=== PATIENT | male | born 1940 | race Caucasian/White ===

== ENCOUNTER 2016-05-07 07:01 | Day surgery (SDC) | payer MEDICARE, OTHER ==
[2016-05-01 15:08] LABS: BASOPHILS 0.2 %; BASOPHILS ABSOLUTE 0.02 10/3/uL (0.0-0.16); EOSINOPHILS 0.3 %; EOSINOPHILS ABSOLUTE 0.03 10/3/uL (0.0-0.53); HEMATOCRIT 41.6 % (40.0-51.0); HEMOGLOBIN 14.2 g/dL (13.6-17.8); IMMATURE GRANULOCYTES 0.1 %; IMMATURE GRANULOCYTES ABSOLUTE 0.01 10/3/uL (0.0-0.11); LYMPHOCYTES 24.8 %; LYMPHOCYTES ABSOLUTE 2.26 10/3/uL (0.67-4.30); MEAN CORPUS HGB CONC 34.1 g/dL (32.0-36.0); MEAN CORPUSCULAR HEMOGLOB 30.4 pg (26.0-34.0); MEAN CORPUSCULAR VOLUME 89.1 fL (80-100); MONOCYTES 5.5 %; NEUTROPHILS 69.1 %; PLATELET COUNT 207 10/3/uL (150-400); RBC DISTRIBUTION WIDTH 13.1 % (12.0-16.0); RED CELL COUNT 4.67 10/6/uL (4.7-6.1); WHITE BLOOD CELLS 9.1 10/3/uL (4.5-10.5)
[2016-05-01 15:11] LABS: MANUAL DIFF NO %
[2016-05-01 15:21] LABS: A/G RATIO 1.3 (0.7-1.9); ALKALINE PHOSPHATASE 109 U/L (45-117); BUN (BLOOD UREA NITROGEN) 18 MG/DL (6-23); CHLORIDE, SERUM 107 MMOL/L (96-112); CO2 (CARBON DIOXIDE) 27 MMOL/L (24-34); CREATININE 1.14 MG/DL (0.70-1.30); GFR AFRICAN AMERICAN 73 ML/MIN (>=60); GFR NON AFRICAN AMERICAN 63 ML/MIN (>=60); GLUCOSE, SERUM 84 MG/DL (60-99); POTASSIUM, SERUM 4.6 MMOL/L (3.5-5.3); SGOT(AST) 21 U/L (5-40); SGPT(ALT) 21 U/L (5-65); SODIUM, SERUM 143 MMOL/L (135-148); TOTAL BILIRUBIN 0.6 MG/DL (0-1.2)
--- NOTE | ~2016-05-07 | OP ---
Record Of Operation [facility] [address] [place]. [address] NAME: FRAN BEARD : 44 STATUS : [facility]#: [id number] AGE: 76 ADM/REG DATE : 05/07/16 MR#: [id number] REPORT SERV DATE: 05/09/16 DICTATED BY: KIP KEBEDE DATE: 05/09/16 REPORT STATUS : Draft TRANSCRIBED BY: MODL DATE: 05/09/16 DATE OF PROCEDURE: 05/07/2016 PREOPERATIVE DIAGNOSIS: Right inguinal hernia. POSTOPERATIVE DIAGNOSIS: Right direct inguinal hernia. PROCEDURE PERFORMED: Right inguinal herniorrhaphy with mesh. SURGEON: Kip Kebede M.D. ANESTHESIA: General. ESTIMATED BLOOD LOSS: Minimal. SPECIMEN REMOVED: None. BRIEF HISTORY: Mr. Beard is a 76-year-old gentleman who presents with right inguinal protrusion which has been growing, becoming tender and symptomatic. He presents today for repair. FINDINGS AT THE TIME OF PROCEDURE: Mr. Beard is noted have a direct inguinal hernia. This was repaired using an extended piece of Ethicon Prolene Hernia System mesh. DETAILS: Following informed consent, the patient was taken to the operating room and placed supine on the OR table. After successful induction of general endotracheal anesthesia, his abdomen was prepped and draped in the usual sterile fashion. An Ioban adhesive drape was applied. A right lower quadrant oblique skin incision was made. Dissection was carried through skin, subcutaneous tissue, and Yenny's fascia using cautery. The external oblique aponeurosis was identified as was the external inguinal ring. The external oblique aponeurosis was then sharply incised and opened in direction of its fibers through the external inguinal ring. Spermatic cord was then identified and encircled with a Noé drain to protect the cord structures. The spermatic cord was carefully inspected. Cremasteric muscles were divided and there was no evidence of an indirect inguinal hernia. In the medial epigastric vessels, there was a large direct inguinal hernia. The transversalis fascia fibers overlying this were incised and the preperitoneal space was entered and developed bluntly with a Ray-Tuan sponge. The Ray-Tuan sponge was then removed, and an extended piece of Ethicon Prolene Hernia System mesh was deployed in the preperitoneal space. The anterior onlay portion of the mesh was then opened and secured medially to pubic tubercle using 2-0 Prolene suture. A slit was cut in the mesh to accommodate the spermatic cord, and the slit portion of the mesh was approximated around the spermatic cord using Prolene. The mesh was further fixated on the shelving edge of the ilioinguinal ligament and once the mesh had been properly fixated, we intentionally resected the ilioinguinal nerve to prevent nerve entrapment. The wound was then copiously irrigated. Hemostasis was found to be secure. The external oblique aponeurosis was then reapproximated using a running 2-0 PDS suture. Yenny's fascia was reapproximated using 3-0 Vicryl. 3-0 Record Of Operation [address] [place]. [address] NAME: FRAN BEARD : 44 STATUS : [facility] PAT#: [id number] AGE: 76 ADM/REG DATE : 05/07/16 MR#: [id number] REPORT SERV DATE: 05/09/16 DICTATED BY: KIP KEBEDE DATE: 05/09/16 REPORT STATUS : Draft TRANSCRIBED BY: ELOISA DATE: 05/09/16 Vicryl subdermals were applied followed by 4-0 Monocryl subcuticular suture and Dermabond. At the completion of the case, all sponge and needle counts were correct. The patient was extubated and transferred to recovery room in satisfactory condition, having suffered no apparent perioperative complications. PHILL/ELOISA Kip Kebede M.D. / [id number] CC: Chet Fisher M.D.
[~2016-05-07 07:01] MED LIST: B12100T PO; MAG-DELAY PO; NEUR300 PO
== END 2016-05-07 13:11 | disposition home or self-care (01) ==
LOC: SDC 07:01
PROVIDERS: Surgery
PROC: 0YU50JZ Supplement Right Inguinal Region with Synthetic Substitute, Open Approach (ICD-10-PCS; principal; 2016-05-07 09:15)
DX: K40.90 Unilateral inguinal hernia, without obstruction or gangrene, not specified as recurrent (principal); G62.9 Polyneuropathy, unspecified; Z98.890 Other specified postprocedural states
CPT/HCPCS: 80053; 85025; 93005; J0690; J2250; J2405; J2710; J3010